=== PATIENT | female | born 1950 | race Caucasian/White ===

== ENCOUNTER → 2017-12-03 | Outpatient (CLI) | payer MEDICARE ==
--- NOTE | 2017-12-04 13:32 | MM ---
Reason for exam: screening (asymptomatic). Last mammogram was performed 1 year and 11 months ago. History: Patient is postmenopausal. Benign cyst aspiration, November 09, 2003. Benign ultrasound-guided core biopsy of the right breast, November 09, 2003. Benign ultrasound-guided core biopsy of the right breast, November 09, 2003. 2 core biopsies of the right breast. Excisional biopsy of the left breast. Physical Findings: A clinical breast exam by your physician is recommended on an annual basis and results should be correlated with mammographic findings. MG Screening Mammo w CAD Bilateral CC and MLO view(s) were taken. Prior study comparison: January 10, 2016, bilateral MG screening mammo w CAD. January 14, 2009, bilateral digital screening mammogram. The breast tissue is heterogeneously dense. This may lower the sensitivity of mammography. Benign appearing bilateral calcifications. No suspicious abnormality. Right biopsy markers noted. No significant changes when compared with prior studies. ASSESSMENT: Benign, BI-RAD 2 RECOMMENDATION: Routine screening mammogram of both breasts in 1 year.
== END | disposition home or self-care (01) ==
LOC: RADMAMWWP 14:19
PROVIDERS: ATTEND Internal Medicine Hematology & Oncology
DX: Z12.31 Encounter for screening mammogram for malignant neoplasm of breast (principal)
CPT/HCPCS: 77067

== ENCOUNTER 2017-12-14 10:17 | Day surgery (SDC) | payer MEDICARE ==
[2017-12-12 09:34] VITALS: BMI 28.0
[~2017-12-14 10:17] MED LIST: LACTATED RINGERS 1,000 ML IV SCH
[2017-12-14 11:24] VITALS: RESP 16; TEMP 97.9
[2017-12-14] MEDS ORDERED: LIDOCAINE 1% 20 ML VIAL (10MG/ML) FOR IV START INTRADERMA ONE (11:36)
[2017-12-14] MEDS ORDERED: PROPOFOL 10 MG/ML 20 ML VIAL IV ONE (12:09)
--- NOTE | 2017-12-14 12:33 | P.PCN ---
Date of Procedure: 12/14/17 Procedure(s) Performed: BRIEF HISTORY: Patient is a 67-year-old pleasant white female, scheduled for an elective colonoscopy as a part of surveillance of colorectal neoplasia. She was diagnosed with rectal cancer in October 2013, status post neoadjuvant chemoradiation followed by surgery in February 2014. Her last colonoscopy was 3 years ago. She is scheduled for a surveillance colonoscopy today. PROCEDURE PERFORMED: Colonoscopy. PREOPERATIVE DIAGNOSIS: Surveillance of colorectal neoplasia. IV sedation per Anesthesia. PROCEDURE: After informed consent was obtained, the patient, was brought into the endoscopy unit. IV sedation was administered by Anesthesia under continuous monitoring. Digital rectal examination revealed mild anal stenosis.. Initially the Olympus CF-160 flexible video pediatric colonoscope was then inserted in the rectum, gradually advanced into the cecum without any difficulty. Careful examination was performed as the scope was gradually being withdrawn. Ileocecal valve and the appendiceal orifice were visualized and appeared normal. Prep was fair.. Mucosa of the cecum, ascending colon, transverse colon, descending colon, sigmoid colon appeared normal. Early stenosis noted at the anastomosis which was located at 5 cm from the anal verge. The patient tolerated the procedure well. IMPRESSION: Normal-appearing colon from rectum to cecum with no evidence of colorectal neoplasia. Mild stenosis at the anastomosis located at 5 cm from the anal verge.. RECOMMENDATIONS: Findings of this examination were discussed with the patient as well as her family. She can have a repeat surveillance colonoscopy in 3 years.
[2017-12-14 12:53] VITALS: BP 122/74; PULSE 71
== END 2017-12-14 13:11 | disposition home or self-care (01) ==
LOC: ORWHC2ENDO 10:17
PROVIDERS: ATTEND Internal Medicine Gastroenterology
DX: Z12.11 Encounter for screening for malignant neoplasm of colon (principal); K62.4 Stenosis of anus and rectum; Z85.038 Personal history of other malignant neoplasm of large intestine; Z92.21 Personal history of antineoplastic chemotherapy; J45.909 Unspecified asthma, uncomplicated; Z88.2 Allergy status to sulfonamides
CPT/HCPCS: J2704; G0105; 45378

== ENCOUNTER → 2018-03-11 | Outpatient (CLI) | payer MEDICARE ==
--- NOTE | 2018-03-12 06:46 | BD ---
EXAMINATION TYPE: Axial Bone Density DATE OF EXAM: 03/11/2018 COMPARISON: 2008 bone scan report CLINICAL History: osteoarthritis Height: 5'7 Weight: 176 FRAX RISK QUESTIONS: Secondary Osteoporosis: RISK FACTORS HISTORY OF: MEDICATIONS: Additional Medications: Additional History: rectal cancer 2013 EXAM MEASUREMENTS: Bone mineral densitometry was performed using the [email or web address] System. Bone mineral density as measured about the Lumbar spine is: ----- L1-L4(G/cm2): 0.926 T Score Values are as follows: ----- L2: -2.6 ----- L3: -1.3 ----- L4: -2.1 ----- L1-L4: -2.1 Bone mineral density has: Decreased -11.3% since study of: 01/14/2009 Bone mineral density about the R hip (g/cm2): 0.788 Bone mineral density about the L hip (g/cm2): 0.695 T Score values are as follows: -----R Neck: -1.8 -----L Neck: -2.5 -----R Total: -1.1 -----L Total: -1.5 Bone mineral density has: Decreased -2.5% since study of: 01/14/2009 IMPRESSION: Osteopenia (T Score between -2.5 and -1) in the low back and both hips. There is slightly increased risk of fracture and the patient may be considered for treatment. Re-Screen 2-5 years. NOTE: T-SCORE=SD OF THE YOUNG ADULT MEAN.
== END | disposition home or self-care (01) ==
LOC: RADBDWWP 07:57
PROVIDERS: ATTEND Family Medicine
DX: M85.88 Other specified disorders of bone density and structure, other site (principal); M19.90 Unspecified osteoarthritis, unspecified site
CPT/HCPCS: 77080

== ENCOUNTER → 2018-05-30 | Outpatient (CLI) | payer MEDICARE ==
--- NOTE | 2018-05-30 14:19 | CT ---
EXAMINATION TYPE: CT ChestAbdPelvis w con DATE OF EXAM: 05/30/2018 COMPARISON: 05/17/2017 and 05/02/2016 HISTORY: 68-year-old female Follow up rectal cancer. TECHNIQUE: Contiguous axial scanning of the chest, abdomen, and pelvis performed with IV Contrast, pa tient injected with 100 mL of Isovue M300. Delayed images through the kidneys were obtained. Coronal/ sagittal reconstructions performed. CT DLP: 1094.7 mGycm Automated exposure control for dose reduction was used. FINDINGS: Chest: Heart normal size without pericardial effusion. Aorta normal caliber with conventional arch vessel branching anatomy. No thoracic lymphadenopathy by CT size criteria. Evaluation of the lung show some streaky areas of atelectasis without consolidation or pleural effusi on. ABDOMEN: No focal liver lesion or biliary ductal dilatation. The venous system is patent. Gallbladder, adrenal glands, kidneys, spleen, and pancreas appear within normal limits. No free fluid or free air. A few clustered prominent right lower quadrant mesenteric lymph nodes abrahan suring up to 6 to 7 mm are unchanged. Otherwise, no mesenteric or retroperitoneal lymphadenopathy. There is a patulous segment of small bowel with postsurgical staple line along the right mid abdomen. Otherwise, no dilated small bowel loops. Oral contrast has progressed to the cecum. Scattered [id number] stool. No pericolonic inflammatory change. There is mid to distal sigmoid diverticulosis. Normal appendix. Pelvis: Surgical changes of distal resection and reanastomosis at the rectum. Stable presacral soft tissue th ickening and some perirectal soft tissue thickening, left greater than right. Multiple pelvic fluid l ungs. Uterus surgically absent. Neither ovary clearly identified. No pelvic lymphadenopathy seen Bones: Mild degenerative changes at the hips. Degenerative changes at the SI joints. Degenerative disc disea se L4-L5 and L5-S1. Superior endplate Schmorl's node of L3. No osseous destructive process. IMPRESSION: 1. DISTAL RESECTION AND REANASTOMOSIS AT THE LEVEL OF THE RECTUM. ADJACENT PRESACRAL SOFT TISSUE THIC KENING AND SOME ADJACENT FASCIAL THICKENING IS UNCHANGED BACK TO AT LEAST 2016 AND LIKELY RELATES TO POSTTREATMENT CHANGE. 2. AN ADDITIONAL SURGERIZED SEGMENT OF BOWEL INCLUDES A MILDLY PATULOUS SMALL BOWEL LOOP IN THE ANTER IOR RIGHT MID ABDOMEN. 3. NO EVIDENCE FOR METASTATIC DISEASE.
== END | disposition home or self-care (01) ==
LOC: RADCTMAIN 10:57
PROVIDERS: ATTEND Internal Medicine Hematology & Oncology
DX: C20 Malignant neoplasm of rectum (principal); M79.89 Other specified soft tissue disorders; K63.89 Other specified diseases of intestine; Z98.890 Other specified postprocedural states; Z88.2 Allergy status to sulfonamides
CPT/HCPCS: 82565; 84520; 71260; 74177; 36415; Q9967

== ENCOUNTER → 2020-11-30 | Outpatient (CLI) | payer MEDICARE ==
--- NOTE | 2020-12-03 13:43 | MM ---
Reason for exam: screening (asymptomatic). Last mammogram was performed 3 years ago. History: Patient is postmenopausal and history of other cancer. Benign cyst aspiration, November 09, 2003. Benign ultrasound-guided core biopsy of the right breast, November 09, 2003. Benign ultrasound-guided core biopsy of the right breast, November 09, 2003. 2 core biopsies of the right breast. Excisional biopsy of the left breast. Physical Findings: A clinical breast exam by your physician is recommended on an annual basis and results should be correlated with mammographic findings. MG Screening Mammo w CAD Bilateral CC and MLO view(s) were taken. Prior study comparison: December 03, 2017, bilateral MG screening mammo w CAD. January 10, 2016, bilateral MG screening mammo w CAD. The breast tissue is heterogeneously dense. This may lower the sensitivity of mammography. Previous mammotome biopsy in the right breast x 2. ASSESSMENT: Benign, BI-RAD 2 RECOMMENDATION: Routine screening mammogram of both breasts in 1 year.
== END | disposition home or self-care (01) ==
LOC: RADMAMWWP 13:33
PROVIDERS: ATTEND Internal Medicine Hematology & Oncology
DX: Z12.31 Encounter for screening mammogram for malignant neoplasm of breast (principal)
CPT/HCPCS: 77067

== ENCOUNTER 2021-01-12 07:56 | Day surgery (SDC) | payer MEDICARE ==
[2021-01-10 10:03] VITALS: BMI 27.6
[2021-01-12 08:20] VITALS: TEMP 97.5
[2021-01-12] MEDS ORDERED: PROPOFOL 10 MG/ML 20 ML VIAL IV ONE (09:04)
[2021-01-12] MEDS ORDERED: LIDOCAINE 1% INJ 10MG/ML (20 ML MDV) ONE (09:04)
--- NOTE | 2021-01-12 09:24 | P.PCN ---
Date of Procedure: 01/12/21 Procedure(s) Performed: BRIEF HISTORY: Patient is a 71-year-old pleasant white female scheduled for an elective colonoscopy as a part of surveillance of prior history of rectal cancer diagnosed in October 2013. She is in clinical remission. She is status post neoadjuvant chemoradiation followed by surgery in February 2014. Her last colonoscopy was 3 years ago.. PROCEDURE PERFORMED: Colonoscopy biopsy. PREOPERATIVE DIAGNOSIS: Follow-up rectal cancer diagnosed October 2013. IV sedation per Anesthesia. PROCEDURE: After informed consent was obtained, the patient, was brought into the endoscopy unit. IV sedation was administered by Anesthesia under continuous monitoring. Digital rectal examination was normal. Initially the Olympus CF-160 flexible video colonoscope was then inserted in the rectum, gradually advanced into the cecum without any difficulty. Careful examination was performed as the scope was gradually being withdrawn. Ileocecal valve and the appendiceal orifice were visualized and appeared normal. Prep was excellent. Mucosa of the cecum, ascending colon appeared normal. In the transverse colon there was a 3 mm polyp that was removed by cold biopsy. The anastomosis in the distal rectum appeared normal. Rest of the, transverse colon, descending colon, sigmoid colon appeared normal. . The patient tolerated the procedure well. IMPRESSION: 3 mm transverse colon polyp status post removal by cold biopsy Rest of the colon appeared normal RECOMMENDATIONS: Findings of this examination were discussed with the patient as well as a family. She was advised to with the biopsy results and have a repeat colonoscopy in 3 years..
[2021-01-12 09:45] VITALS: BP 102/68; PULSE 70; RESP 20
== END 2021-01-12 09:56 | disposition home or self-care (01) ==
LOC: ORWHC2ENDO 07:56
PROVIDERS: ATTEND Internal Medicine Gastroenterology
DX: Z08 Encounter for follow-up examination after completed treatment for malignant neoplasm (principal); D12.3 Benign neoplasm of transverse colon; J45.909 Unspecified asthma, uncomplicated; Z85.048 Personal history of other malignant neoplasm of rectum, rectosigmoid junction, and anus; Z92.3 Personal history of irradiation
CPT/HCPCS: 45380; 88305; J2001; J2704

== ENCOUNTER → 2022-02-13 | Outpatient (CLI) | payer MEDICARE ==
--- NOTE | 2022-02-17 18:15 | MM ---
Reason for Exam: Screening (asymptomatic). Last mammogram was performed 1 year(s) and 3 month(s) ago. Patient History: Menarche at age 15. First Full-Term at age 21. Left ovary removed at age 56. Right ovary removed at age 56. Hysterectomy at age 56. Postmenopausal. Other cancer. Core Biopsy on the Right side. Core Biopsy on the Right side. Excisional Biopsy on the Left side. 11/09/2003, Benign Ultrasound-Guided Core Biopsy on the right side. 11/09/2003, Benign Ultrasound-Guided Core Biopsy on the right side. Benign Cyst Aspiration. Risk Values: Carole 5 year model risk: 1.9%. NCI Lifetime model risk: 5.5%. Prior Study Comparison: 01/10/2016 Bilateral Screening Mammogram, [facility]. 12/03/2017 Bilateral Screening Mammogram, [facility]. 11/30/2020 Bilateral Screening Mammogram, [facility]. Tissue Density: The breast tissue is heterogeneously dense. This may lower the sensitivity of mammography. Findings: Analyzed By CAD. 2 biopsy clips in the right breast. There is no suspicious group of microcalcifications or new suspicious mass in either breast. Overall Assessment: Negative, BI-RAD 1 Management: Screening Mammogram of both breasts in 1 year. A clinical breast exam by your physician is recommended on an annual basis and results should be correlated with mammographic findings. Electronically signed and approved by: Dmitriy Esparza DO
== END | disposition home or self-care (01) ==
LOC: RADMAMWWP 07:17
PROVIDERS: ATTEND Internal Medicine Hematology & Oncology
DX: Z12.31 Encounter for screening mammogram for malignant neoplasm of breast (principal); Z78.0 Asymptomatic menopausal state
CPT/HCPCS: 77067